=== PATIENT | female | born 1985 | race Caucasian/White ===

== ENCOUNTER 2018-11-05 15:20 | Emergency (ER) | payer OTHER ==
[~2018-11-05] VITALS: Ht 167.6 cm; Wt 130.8 kg
[2018-11-05 16:03] LABS: URINE BILIRUBIN NEGATIVE (Negative); URINE BLOOD NEGATIVE (Negative); URINE CLARITY CLEAR; URINE COLOR YELLOW; URINE GLUCOSE-RANDOM* NEGATIVE (Negative); URINE KETONES TRACE (Negative); URINE LEUKOCYTES-REFLEX NEGATIVE (Negative); URINE NITRITE-REFLEX NEGATIVE (Negative); URINE PROTEIN (DIPSTICK) NEGATIVE (Negative); URINE SPECIFIC GRAVITY <= 1.005 (1.005-1.035); URINE UROBILINOGEN 0.2 E.U./dl (0.2-1.0)
[2018-11-05 17:15] LABS: ABSOLUTE NEUTROPHILS 6.3 thou/uL (1.4-8.2); EOSINOPHILS 0.2 % (0.0-3.0); HEMATOCRIT 36.6 % (37.0-47.0); HEMOGLOBIN 12.1 gm/dL (12.0-15.0); LYMPHOCYTES 18.4 % (24.0-44.0); MCHC 33.2 g/dL (28.0-37.0); MCV 75.5 fL (80.0-100.0); MONOCYTES 5.6 % (1.0-8.0); PLATELET COUNT 301 thou/uL (150-400); POLYS 74.8 % (36.0-66.0); RBC 4.85 mil/uL (4.20-5.00); RDW 15.3 % (10.5-14.5); WBC 8.4 thou/uL (4.0-11.0)
[2018-11-05 17:22] LABS: CALCIUM 9.3 mg/dL (8.5-10.1); CREATININE 0.8 mg/dL (0.6-1.0); POTASSIUM 4.2 mmol/L (3.5-5.1)
[2018-11-05 17:24] LABS: APTT 26.8 Seconds (24.5-32.8); PROTIME 10.7 Seconds (9.3-11.4)
[2018-11-05 17:28] LABS: ALBUMIN 3.5 g/dL (3.4-5.0); TOTAL BILIRUBIN 0.4 mg/dL (<0.1-1.0); TOTAL PROTEIN 7.8 g/dL (6.4-8.2)
[2018-11-05 17:53] LABS: TROPONIN-I <0.06 ng/mL (<0.06)
[2018-11-05 20:06] VITALS: BP 131/52
--- NOTE | 2018-11-06 18:44 | EKG ---
[address] [place] [address] ELECTROCARDIOGRAM REPORT Name: CARIDAD MOON Room #: DEP Rd#: [id number] ������������������ Admission: 11/05/18 ������������������ Attend Phys: Discharge: 11/05/18 ������������������ Date of : 87 Report #: [id number] ����������������������������������������������������������������� [id number] THIS REPORT FOR: //name// [facility] ED Test Date: 2018-11-05 Test Time: 16:19:16 Pat Name: CARIDAD MOON Department: Room: Gender: [employer]: : 1985 Requested By: Ancelmo Frost Order Number: [id number] MD: Alon Anderson Measurements Intervals [place] Rate: 96 P: 55 WA: 138 QRS: 27 QRSD: 70 T: 175 QT: 412 QTc: 521 Interpretive Statements Sinus rhythm Borderline left atrial enlargement Nonspecific ST-T wave abnormalities Baseline wander in lead(s) II No previous ECG available for comparison Electronically Signed On 11-06-2018 18:43:55 CDT by Alon Anderson [email or web address] ��������������������������������������������� <ELECTRONICALLY SIGNED> ���������������������������������������� By: Alon Anderson MD ��������������������������������������������� 11/06/18 1843 1619 1619 Alon Anderson MD /HA
== END 2018-11-05 20:17 | disposition home or self-care (01) ==
LOC: ER 15:20
PROVIDERS: Emergency Medicine
DX: F41.9 Anxiety disorder, unspecified (principal); R10.84 Generalized abdominal pain; R51 Headache; F43.9 Reaction to severe stress, unspecified; J45.909 Unspecified asthma, uncomplicated